=== PATIENT | male | born 1945 | race Caucasian/White ===

== ENCOUNTER 2024-12-24 14:17 | Outpatient (CLI) | payer MEDICARE, SELFPAY ==
--- NOTE | ~2024-12-24 | XR_ITS ---
EXAM: XR shoulder LT min 2V DATE: 12/24/2024 14:44 HISTORY: Shoulder pain, L . COMPARISON: None available. FINDINGS: Normal mineralization. No fracture or dislocation. No lytic or blastic lesion. Moderate AC joint and mild glenohumeral joint degenerative change. Superior migration of the humeral head. No er osion or periosteal change. Soft tissues within normal limits. IMPRESSION: Polyarticular osteoarthritis of the left shoulder. Likely rotator cuff pathology. Reviewed, dictated and finalized at location K. IMPRESSION: Polyarticular osteoarthritis of the left shoulder. Likely rotator c uff pathology.
== END 2024-12-24 14:18 | disposition home or self-care (01) ==
LOC: MICIMG 14:26
PROVIDERS: PCP Nurse Practitioner Family; Visit Provider Nurse Practitioner Family
DX: M19.012 Primary osteoarthritis, left shoulder (principal)
CPT/HCPCS: 73030